=== PATIENT | female | born 1970 | race Two or more races ===

== ENCOUNTER 2020-11-10 01:49 | Emergency (ER) | payer OTHER ==
[~2020-11-10] VITALS: Ht 157.5 cm; Wt 74.4 kg
[2020-11-10 01:51] VITALS: BP 128/82
[2020-11-10] MEDS ORDERED: ACETAMINOPHEN 500 MG TAB PO ONE (03:45)
== END 2020-11-10 04:52 | disposition home or self-care (01) ==
LOC: ER 01:52
DX: R51.9 Headache, unspecified (principal); R20.2 Paresthesia of skin; R53.1 Weakness; R47.81 Slurred speech; M19.90 Unspecified osteoarthritis, unspecified site
CPT/HCPCS: 70450